=== PATIENT | male | born 1945 | race Caucasian/White ===

== ENCOUNTER 2016-02-13 07:39 | Outpatient (CLI) | payer MEDICARE, MEDICAID ==
[~2016-02-13 07:39] MED LIST: ALLOPURINOL100 MG PO; ASPIRIN 81MG TA81 MG PO; BETAPACE 80MG T80 MG PO; FUROSEMIDE40 MG PO; GABAPENTIN300 MG PO; KLOR-CON 1010 ME1 PO; LIPITOR40 MG PO; LOSARTAN POTAS100 MG PO; SINGULAIR 10 MG10 MG PO; TAMSULOSIN HYD0.4 MG PO; WARFARIN SODIU7.5 MG PO
== END 2016-02-13 10:08 ==
LOC: ACC 07:39
DX: I48.91 Unspecified atrial fibrillation (principal); Z79.01 Long term (current) use of anticoagulants; Z51.81 Encounter for therapeutic drug level monitoring
CPT/HCPCS: G0463

== ENCOUNTER 2016-03-12 09:56 | Outpatient (CLI) | payer MEDICARE, MEDICAID | END 2016-03-12 11:32 | LOC: ACC 09:56 | DX: I48.91 Unspecified atrial fibrillation (principal); Z79.01 Long term (current) use of anticoagulants; Z51.81 Encounter for therapeutic drug level monitoring | CPT/HCPCS: G0463 ==

== ENCOUNTER 2016-10-16 08:52 | Outpatient (CLI) | payer MEDICARE, MEDICAID ==
[~2016-10-16 08:52] MED LIST changes: +CLOPIDOGREL75 MG PO; +FLUTICASONE 50M16 GM; +IMDUR 60MG. TAB60 MG PO; +NITROGLYCERIN0.4 MG SL; +PROAIR HFA0.09 MG/AC IH; +TRIAMCINOLON 0.15 GM TP; +VITAMIN D31000 IU PO
== END 2016-10-16 15:53 ==
LOC: ACC 08:52
DX: I48.91 Unspecified atrial fibrillation (principal); Z79.01 Long term (current) use of anticoagulants; Z51.81 Encounter for therapeutic drug level monitoring
CPT/HCPCS: G0463

== ENCOUNTER 2016-10-31 09:10 | Outpatient (CLI) | payer MEDICARE, MEDICAID | END 2016-10-31 15:34 | LOC: ACC 09:10 | DX: I48.91 Unspecified atrial fibrillation (principal); Z79.01 Long term (current) use of anticoagulants; Z51.81 Encounter for therapeutic drug level monitoring | CPT/HCPCS: G0463 ==

== ENCOUNTER 2016-11-21 09:04 | Outpatient (CLI) | payer MEDICARE, MEDICAID | END 2016-11-21 14:37 | LOC: ACC 09:04 | DX: I48.91 Unspecified atrial fibrillation (principal); Z79.01 Long term (current) use of anticoagulants; Z51.81 Encounter for therapeutic drug level monitoring | CPT/HCPCS: G0463 ==

== ENCOUNTER 2016-12-03 08:40 | Outpatient (CLI) | payer MEDICARE, MEDICAID | END 2016-12-03 14:57 | LOC: ACC 08:40 | DX: I48.91 Unspecified atrial fibrillation (principal); Z79.01 Long term (current) use of anticoagulants; Z51.81 Encounter for therapeutic drug level monitoring | CPT/HCPCS: G0463 ==

== ENCOUNTER 2016-12-28 10:11 | Outpatient (CLI) | payer MEDICARE, MEDICAID | END 2016-12-28 13:08 | LOC: ACC 10:11 | DX: I48.91 Unspecified atrial fibrillation (principal); Z79.01 Long term (current) use of anticoagulants; Z51.81 Encounter for therapeutic drug level monitoring | CPT/HCPCS: G0463 ==

== ENCOUNTER 2017-01-11 08:27 | Outpatient (CLI) | payer MEDICARE, MEDICAID | END 2017-01-11 15:54 | LOC: ACC 08:27 | DX: Z79.01 Long term (current) use of anticoagulants (principal) | CPT/HCPCS: G0463 ==